=== PATIENT | female | born 1995 | race Caucasian/White ===

== ENCOUNTER 2023-06-13 22:56 | Emergency (ER) | payer SELFPAY | END 2023-06-13 23:36 | disposition home or self-care (01) | LOC: MW.ED 22:56 | DX: Z13.9 Encounter for screening, unspecified (principal) | CPT/HCPCS: 99283 ==

== ENCOUNTER 2023-10-06 16:36 | Emergency (ER) | payer MEDICAID ==
[2023-10-06] MEDS: Doxycycline 100 MG Cap PO ONE (17:13)
== END 2023-10-06 17:25 ==
LOC: MW.ED 16:36
DX: L03.116 Cellulitis of left lower limb (principal); L03.115 Cellulitis of right lower limb; R05.9 Cough, unspecified
CPT/HCPCS: 99283; A9270; 93010

== ENCOUNTER 2023-12-05 20:42 | Emergency (ER) | payer MEDICAID ==
[2023-12-05] MEDS: Doxycycline 100 MG Cap PO ONE (21:28)
[2023-12-05] MEDS: Acetaminophen 500 MG Tab PO ONE (21:28)
== END 2023-12-05 21:40 ==
LOC: MW.ED 20:42
DX: J32.9 Chronic sinusitis, unspecified (principal); F19.10 Other psychoactive substance abuse, uncomplicated; Z75.8 Other problems related to medical facilities and other health care
CPT/HCPCS: 99283; A9270